=== PATIENT | female | born 1940 | race Two or more races ===

== ENCOUNTER 2018-09-16 20:11 | Emergency (ER) | payer OTHER ==
[~2018-09-16] VITALS: Ht 144.8 cm; Wt 35.8 kg
[~2018-09-16 20:11] MED LIST: GLIMEPIRIDE4 MG; GLIMEPIRIDE4 MG PO; GLUMETZA1000 MG; LEVOXYL75 MCG; METFORMIN HYDRO25 GM; NOVOLOG100 U/M1; RAMIPRIL2.5 MG; SIMBRINZA 1%-0.28 ML
[2018-09-17] MEDS ORDERED: NABUMETONE750 MG PO (01:57)
== END 2018-09-17 02:00 | disposition home or self-care (01) ==
LOC: ER 20:11
DX: S00.03XA Contusion of scalp, initial encounter (principal); S30.0XXA Contusion of lower back and pelvis, initial encounter; E11.65 Type 2 diabetes mellitus with hyperglycemia; W18.09XA Striking against other object with subsequent fall, initial encounter; Y93.89 Activity, other specified; Y92.480 Sidewalk as the place of occurrence of the external cause; Y99.8 Other external cause status

== ENCOUNTER 2019-10-28 10:54 | Inpatient (IN) | payer OTHER ==
[~2019-10-28] VITALS: Ht 144.8 cm; Wt 34.5 kg
[~2019-10-28 10:54] MED LIST changes: +NABUMETONE750 MG PO
[2019-10-28] MEDS ORDERED: PEPCID AC20 MG (11:02)
[2019-10-28] MEDS ORDERED: GALANTAMINE HBR8 MG (11:03)
[2019-10-28] MEDS ORDERED: LEVOXYL25 MCG (11:03)
[2019-10-28] MEDS ORDERED: GLIMEPIRIDE2 M1 (11:03)
[2019-10-28] MEDS ORDERED: FORTAMET500 MG (11:04)
[2019-11-04] MEDS ORDERED: INTESTINEX680 M1 PO (09:25)
[2019-11-04] MEDS ORDERED: BACTRIM DS TAB1 EACH PO (09:26)
== END 2019-11-04 17:56 | disposition home or self-care (01) | DRG 603 ==
LOC: ER 10:54 → MEDI 22:01 → MEDJ 22:01 → MEDI 10-29 00:08 → MEDJ 10-30 14:32
PROVIDERS: ADMIT Internal Medicine
PROC: BQ21ZZZ Computerized Tomography (CT Scan) of Left Hip (ICD-10-PCS; principal; 2019-10-28)
PROC: BQ20ZZZ Computerized Tomography (CT Scan) of Right Hip (ICD-10-PCS; 2019-10-28)
PROC: B020ZZZ Computerized Tomography (CT Scan) of Brain (ICD-10-PCS; 2019-10-28)
PROC: 8E0ZXY6 Isolation (ICD-10-PCS; 2019-10-30)
PROC: 30233N1 Transfusion of Nonautologous Red Blood Cells into Peripheral Vein, Percutaneous Approach (ICD-10-PCS; 2019-10-31)
DX: L03.213 Periorbital cellulitis (principal); R65.10 Systemic inflammatory response syndrome (SIRS) of non-infectious origin without acute organ dysfunction; N39.0 Urinary tract infection, site not specified; M17.12 Unilateral primary osteoarthritis, left knee; E11.65 Type 2 diabetes mellitus with hyperglycemia; B95.62 Methicillin resistant Staphylococcus aureus infection as the cause of diseases classified elsewhere; D64.89 Other specified anemias; G30.1 Alzheimer's disease with late onset; F02.80 Dementia in other diseases classified elsewhere, unspecified severity, without behavioral disturbance, psychotic disturbance, mood disturbance, and anxiety

== ENCOUNTER 2020-04-01 15:19 | Inpatient (IN) | payer OTHER ==
[~2020-04-01] VITALS: Ht 144.8 cm; Wt 34.5 kg
[~2020-04-01 15:19] MED LIST changes: +BACTRIM DS TAB1 EACH PO; +FORTAMET500 MG; +GALANTAMINE HBR8 MG; +GLIMEPIRIDE2 M1; +INTESTINEX680 M1 PO; +LEVOXYL25 MCG; +PEPCID AC20 MG
[2020-04-01] MEDS ORDERED: ARICEPT10 MG PO (15:57)
[2020-04-01] MEDS ORDERED: METFORMIN HCL1000 M3 PO (15:57)
[2020-04-04] MEDS ORDERED: FLUOXETINE HCL10 MG (08:34)
== END 2020-04-07 14:28 | disposition home or self-care (01) | DRG 690 ==
LOC: ER 15:19 → MEDJ 21:02
PROVIDERS: ADMIT Internal Medicine; ATTEND Internal Medicine
DX: N39.0 Urinary tract infection, site not specified (principal); N17.8 Other acute kidney failure; K92.1 Melena; E86.0 Dehydration; G30.9 Alzheimer's disease, unspecified; E03.8 Other specified hypothyroidism; I10 Essential (primary) hypertension; B96.1 Klebsiella pneumoniae [K. pneumoniae] as the cause of diseases classified elsewhere; E87.6 Hypokalemia; E11.65 Type 2 diabetes mellitus with hyperglycemia; F32.9 Major depressive disorder, single episode, unspecified; Z03.818 Encounter for observation for suspected exposure to other biological agents ruled out

== ENCOUNTER 2021-02-23 16:16 | Emergency (ER) | payer OTHER ==
[~2021-02-23] VITALS: Ht 144.8 cm; Wt 22.7 kg
[~2021-02-23 16:16] MED LIST changes: +ARICEPT10 MG PO; +FLUOXETINE HCL10 MG; +METFORMIN HCL1000 M3 PO
== END 2021-02-24 14:19 | disposition home or self-care (01) ==
LOC: ER 16:16
DX: K29.00 Acute gastritis without bleeding (principal); E86.0 Dehydration; K56.41 Fecal impaction; R11.11 Vomiting without nausea; K80.80 Other cholelithiasis without obstruction; G30.8 Other Alzheimer's disease; F02.80 Dementia in other diseases classified elsewhere, unspecified severity, without behavioral disturbance, psychotic disturbance, mood disturbance, and anxiety; M24.69 Ankylosis, other specified joint; M16.12 Unilateral primary osteoarthritis, left hip; Z74.01 Bed confinement status

== ENCOUNTER 2021-07-20 09:54 | Emergency (ER) | payer OTHER ==
[~2021-07-20] VITALS: Ht 152.4 cm; Wt 45.4 kg
== END 2021-07-20 16:11 | disposition home or self-care (01) ==
LOC: ER 09:54
DX: S70.02XA Contusion of left hip, initial encounter (principal); R07.89 Other chest pain; G30.8 Other Alzheimer's disease; F02.80 Dementia in other diseases classified elsewhere, unspecified severity, without behavioral disturbance, psychotic disturbance, mood disturbance, and anxiety; W18.09XA Striking against other object with subsequent fall, initial encounter; Y93.89 Activity, other specified; Y92.198 Other place in other specified residential institution as the place of occurrence of the external cause; Y99.8 Other external cause status